=== PATIENT | female | born 1955 | race Two or more races ===

== ENCOUNTER 2017-11-10 01:08 | Emergency (ER) | payer BC ==
[~2017-11-10] VITALS: Ht 167.6 cm; Wt 63.5 kg
--- NOTE | 2017-11-10 01:08 | NUR ---
FOUND HER WITH BELT AROUND NECK AFTER SHE FOUND HIM WITH HIS EX. TOOK XANAX AND ETOH. VSS NO ACUTE DISTRESS NOTED AT THIS TIME. SKIN WARM AND INTACT. PT IS ALERT AND ORIENTED X4 ABLE TO MAKE NEEDS KNOWN. WILL CONTINUE TO MONITOR FOR ANY CHANGES DURING THE SHIFT.
--- NOTE | 2017-11-10 01:09 | NUR ---
ER MD CURTIS AT BEDSIDE
[2017-11-10 01:25] LABS: BASOPHILS % (AUTO) 0.9 % (0.0-2.0); EOSINOPHILS % (AUTO) 1.2 % (0.0-6.0); HEMATOCRIT 38 % (33-45); HEMOGLOBIN 13.5 g/dL (11.5-14.8); LYMPHOCYTES # (AUTO) 1.2 /CMM (0.8-4.8); LYMPHOCYTES % (AUTO) 29.8 % (20.0-44.0); MEAN CORPUSCULAR HGB CONC 35 g/dl (31.0-36.0); MEAN CORPUSCULAR VOLUME 99 fL (82-100); MONOCYTES # (AUTO) 0.4 /CMM (0.1-1.30); MONOCYTES % (AUTO) 10.1 % (2.0-12.0); NEUTROPHILS # (AUTO) 2.4 /CMM (1.8-8.9); PLATELET COUNT (AUTO) 237 /CMM (150-450); RDW COEFFICIENT OF VARIATION 10.6 (11.5-15.0); RED BLOOD CELL COUNT(AUTO) 3.87 MIL/uL (4.0-5.2)
[2017-11-10 02:05] LABS: CALCIUM, SERUM 9.2 mg/dL (8.5-10.1); CARBON DIOXIDE 25 mmol/L (21-32); CHLORIDE 100 mmol/L (98-107); CREATININE 0.9 mg/dL (0.6-1.3); GLUCOSE 92 mg/dL (74-106); POTASSIUM 3.1 mmol/L (3.5-5.1); SODIUM SERUM 138 mmol/L (136-145); UREA NITROGEN, BLOOD 9 mg/dL (7-18)
[2017-11-10 02:11] LABS: ALANINE AMINOTRANSFERASE 24 U/L (12-78); ALBUMIN 4.2 g/dL (3.4-5.0); ALCOHOL, BLOOD 75 mg/dL (0-0); ALKALINE PHOSPHATASE 46 U/L (46-116); ASPARTATE AMINOTRANSFERASE 25 U/L (15-37); BILIRUBIN,DIRECT 0.2 mg/dL (0.0-0.2); BILIRUBIN,TOTAL 0.8 mg/dL (0.2-1.0); TOTAL PROTEIN, SERUM 7.4 g/dL (6.4-8.2)
[2017-11-10 02:14] LABS: ACETAMINOPHEN 0 ug/ml (10-30); SALICYLATE < 2.0 mg/dL (2.8-20.0)
[2017-11-10] MEDS ORDERED: POTASSIUM CHLORIDE 20 MEQ TAB.PRT.SR PO ONE ×2 (03:00→03:08)
--- NOTE | 2017-11-10 03:20 | NUR ---
PSYCH SUPERVISOR DIAGNOSTIC TRACY AT BEDSIDE FOR EVAL
[2017-11-10 03:54] VITALS: BP 109/41
== END 2017-11-10 03:55 | disposition home or self-care (01) ==
LOC: ER 01:11
DX: F43.20 Adjustment disorder, unspecified (principal); F32.9 Major depressive disorder, single episode, unspecified; F41.9 Anxiety disorder, unspecified
CPT/HCPCS: 36415; 80048; 80076; 80305; 80329; 85025; 99284; A4606; G0480 ×2; Z7610